=== PATIENT | male | born 1995 | race Caucasian/White ===

== ENCOUNTER 2024-02-13 20:22 | Emergency (ER) | payer OTHER, SELFPAY ==
[2024-02-13 20:23] VITALS: BMI 36.7
[2024-02-13 20:25] VITALS: BP 136/81
--- NOTE | 2024-02-13 20:51 | ED.GENMED ---
History of Present Illness
General
Chief Complaint: Fall
Source: patient
Exam Limitations: none
Time Seen by Provider: 02/13/24 20:43
History of Present Illness
History of Present Illness:
See MDM
Past History
Past History
ED Past Medical History: None
ED Past Surgical History: Tonsilectomy
Social History
Tobacco: Non-smoker
Alcohol: None
Phy Exam
Physical Exam
Physical Exam:
See MDM
Course
Orders/Labs/Results
Orders:
Orders
02/13/24 20:48
Ketorolac [Toradol] 30 mg IM NOW STA
Oxycodone/Acetaminophen [Percocet 5/325] 1 tablet PO NOW STA
Knee, Left 4 or More Views [CR Knee - Left 4 Or More View*] Urgent
Comment:
Reason For Exam: fall, patellar pain
Vital Signs
Initial and Last Documented VS:
Initial Vital Signs
Temp Pulse Resp BP Pulse Ox
97.8 F 65 22 136/81 100
02/13/24 20:25 02/13/24 20:25 02/13/24 20:25 02/13/24 20:25 02/13/24 20:25
Last Documented Vital Signs
Temp Pulse Resp BP Pulse Ox
97.8 F 65 22 136/81 100
02/13/24 20:25 02/13/24 20:25 02/13/24 20:25 02/13/24 20:25 02/13/24 20:25
MDM/Problems Addressed
Differential Diagnosis Includes:
HPI and MDM Narrative:
28-year-old male presenting with left knee pain. Patient tripped and fell right on his left knee. Patient is concerned because he is having trouble moving his leg. He saw a dent in his knee
On exam, there is a palpable patellar fracture. Will give Toradol, Percocet and x-ray. No effusion noted
Physical exam
General: Well appearing and non-toxic
HEENT: protecting airway
Neck: appears supple
CV: No evidence of cyanosis
Resp: No accessory muscle use
Abd: Non-distended
Extremities: Tenderness and palpable fracture to mid left patella. Distal extremity neurovascular intact. Decreased range of motion secondary to pain
Neuro: alert
Psych: Normal affect
Skin: Intact
Problems Addressed including Acute and Chronic Conditions affecting care:
1. Patellar fracture
Acuity: acute
Prognosis: unstable
Details: Will place a knee immobilizer
Updates
X-ray consistent with patellar fracture. Will place in knee immobilizer and discussed follow-up with orthopedics
Differential Diagnosis (but not limited to): Knee contusion, patellar fracture, quadriceps tear
Testing considered: Femur x-ray
Drug therapy (if applicable): OTC meds, please see d/c instruction regarding Rx drugs
Amount and/or Complexity of Data Reviewed
Clinical info obtained from: Patient
External data reviewed: N/A
Labs I independently reviewed (but not limited to): N/A
Radiology: X-ray independently reviewed: Patellar fracture
Pulse Ox: not hypoxic
EKG independently reviewed: N/A
Professor Of Religious Studies: N/A
Critical Care: N/A
Risk of Complication:
Social Determinants of health: Good social support
Discussed with other providers: N/A
Escalation of Care includes Admit/Obs: After being observed in the Emergency Department, pt stable for discharge.
Occasional wrong word or 'sound a like' substitutions may have occurred due to the inherent limitations of voice recognition software. Read the chart carefully and recognize, using context, where substitutions have occurred.
*Critical Care Note
Total Time (30-74mins, 75-104mins- exclusive of procedures): Not Applicable
ED Attending Note
-
Portions of this chart may have been created with voice recognition software.� Occasional wrong word or��sound alike� substitutions may have occurred due to the inherent limitations of voice recognition software.
Discharge Plan
Departure
Patient Disposition: Home (Routine Discharge)
Date of Disposition: 02/13/24
Time of Disposition: 21:53
Patient with high blood pressure during this ER visit?: No
Discharge Problem:
Patellar fracture
Instructions: Patella Fracture ED
Prescriptions:
New
diclofenac potassium 50 mg tablet
50 mg PO BID Qty: 20 0RF
oxycodone 5 mg tablet
5 mg PO Q8H PRN (Reason: Pain) Qty: 14 0RF
No Action
secukinumab [Cosentyx Pen] 150 MG/ML pen injector
150 mg SC .[id number]
prednisolone sodium phosphate 15 MG/5 ML solution
10 ml PO DAILY 3 Days Qty: 30 0RF
Rx Instructions:
Take Prelone starting tomorrow, once daily x 3 days
ondansetron 4 MG tablet,disintegrating
4 mg PO Q8H PRN (Reason: Nausea and Vomiting) 10 Days Qty: 15 0RF
hydrocodone-acetaminophen 15 ML solution
15 ml PO Q4HPRN PRN (Reason: Pain) Qty: 475 0RF
hydrocodone-acetaminophen 15 ML solution
15 ml PO Q4HPRN PRN (Reason: Pain) Qty: 475 0RF
Referrals:
Elvis Whitmore MD [Family Provider] -
Chava Fernández MD [Active] -
Activity Restrictions/Additional Instructions:
Please continue to use the crutches and not bear any weight on your left leg. Follow-up with the orthopedist and let them know that you are seen in the emergency department and have a kneecap fracture. They will see you likely this week.
You were given a prescription for narcotics. If you require this pain medicine, please take a daily [id number] stool softener to avoid constipation.
Interventions
Interventions:
*Risk Screen - Suicide Last Done: 02/13/24 21:19
*General Assessment Last Done: 02/13/24 21:19
*Neglect/Abuse Screening Last Done: 02/13/24 21:19
*ED COVID-19 Vaccine History Last Done: 02/13/24 21:19
ED-Musculoskeletal Assessment Last Done: 02/13/24 21:18
ED- Neurological Assessment Last Done: 02/13/24 21:18
ED-Skin Assessment Last Done: 02/13/24 21:18
Discharge Date and Time
Print Language: BANGLADESHI
[2024-02-13] MEDS: TORADOL 30 MG IM (20:59)
[2024-02-13] MEDS: PERCOCET 5/325 1 TABLET PO (21:00)
[2024-02-13 22:18] VITALS: BP 130/78
== END 2024-02-13 22:20 | disposition home or self-care (01) ==
LOC: EMR 20:22
PROVIDERS: EMERGENCY PHYSICIAN Student in an Organized Health Care Education/Training Program; FAMILY PHYSICIAN Family Medicine
DX: S82.042A Displaced comminuted fracture of left patella, initial encounter for closed fracture (principal); W01.0XXA Fall on same level from slipping, tripping and stumbling without subsequent striking against object, initial encounter
CPT/HCPCS: 99284; 29505; 96372; 73564